=== PATIENT | female | born 1935 | race Caucasian/White ===

== ENCOUNTER 2016-12-30 10:44 | Emergency (ER) | payer MEDICARE, MEDICAID ==
[2016-12-30 11:34] LABS: ALT (SGPT) 14 U/L (8-55); AST (SGOT) 20 U/L (5-34); Albumin 3.8 g/dL (3.4-4.8); Alkaline Phosphatase 135 U/L (40-150); Anion Gap 28 mmol/L (10-20); BUN (Urea Nitrogen) 60 mg/dL (9.8-20.1); Bilirubin, Total 0.5 mg/dL (0.2-1.2); Calc. Creatinine Clearance 0 mL/min (70-130); Calcium 9.9 mg/dL (7.8-10.44); Carbon Dioxide 15 mmol/L (23-31); Chloride 95 mmol/L (98-107); Estimated GFR-MDRD 13; Globulin 4.2 g/dL (2.4-3.5); Glucose 120 mg/dL (83-110); Magnesium 1.6 mg/dL (1.6-2.6); Potassium 4.2 mmol/L (3.5-5.1); Sodium 134 mmol/L (136-145)
[2016-12-30 11:36] LABS: CKMB 1.2 ng/mL (0-6.6); Troponin I 0.017 ng/mL (< 0.028)
[2016-12-30 11:42] LABS: Acanthocytes SLIGHT = 1-5 cells (100X) (None Seen); Band 61 % (5-11); Hemoglobin 12.6 g/dL (12.0-16.0); Lymphocytes 4 % (21-51); MDiff Complete? YES; Mean Corpuscular HGB CONC 32.2 g/dL (32.0-36.0); Mean Corpuscular Hemoglobin 28.6 pg (27.0-31.0); Mean Corpuscular Volume 88.9 fl (81.0-99.0); Monocytes 5 % (0-10); Neutrophil 29 % (42-75); Platelet Count 508 thou/uL (130-400); RBC Distribution Width 12.6 % (11.5-14.5); Reactive Lymphocytes 1 % (0-10); Toxic Granulation MODERATE; Vacuoles SLIGHT; White Blood Cell (WBC) Count 24.8 thou/uL (4.8-10.8)
[2016-12-30 11:55] LABS: Bilirubin Small (Negative); Blood, Urine Negative (Negative); Clarity Slightly Cloudy (Clear); Glucose, Urine (Dipstick) Negative (Negative); Leukocyte Negative (Negative); Nitrite Negative (Negative); Protein, Urine (Dipstick) 30 mg/dL (Neg-Trace); Urobilinogen 0.2 mg/dL (0.2-1.0)
[2016-12-30 11:59] LABS: Bacteria/HPF 1+ HPF (None Seen); Oval Fat Bodies/HPF None Seen HPF (None Seen); RBC/HPF None Seen HPF (0-3); Renal Epithelial None Seen HPF (0-3); Sperm/HPF None Seen HPF (None Seen); Squamous Epithelial 0-3 HPF (0-3); Transitional Epithelial NONE SEEN HPF (0-3); Trichomonas/HPF None Seen HPF (None Seen); WBC/HPF 0-3 HPF (0-3); Yeast-All Forms None Seen HPF (None Seen)
[2016-12-30 12:00] LABS: Crystals/HPF None Seen HPF (Negative); Hyaline Casts/LPF NONE SEEN LPF (0-3 Hyaline); Other Casts/LPF None Seen LPF (0-3 Hyaline)
--- NOTE | 2016-12-30 12:47 | RAD ---
PORTABLE CHEST: DATE: 12/30/16. FINDINGS: An AP portable film at 1101 is compared with a 06/27/16 study from [facility]. There has been no adverse interval change. The heart size is the same. There are no congestive fin dings, pleural effusions, or focal pulmonary infiltrates. Calcification is seen in the aortic arch as usual. IMPRESSION: No acute thoracic findings. POS: HOME
[2016-12-30 13:14] LABS: Troponin I 0.011 ng/mL (< 0.028)
[2016-12-30] MEDS ORDERED: Piperacillin/Tazobactam 3.375 GM VIAL ONE (13:25)
[2016-12-30 15:05] LABS: Color Of CSF Supernatant COLORLESS (Colorless); Tube # 2; Unspun CSF Color COLORLESS (Colorless)
[2016-12-30 15:09] LABS: CSF Source CSF; Clarity Clear (Clear); RBC Count - Manual 0 /cumm (None Seen); Tube # 3; WBC/NonHematics Count - Manual 1 /cumm (0-5)
[2016-12-30 15:22] LABS: CSF, Glucose 67 mg/dl (40-70); CSF, Protein 28 mg/dL (15-40)
== END 2016-12-30 14:05 | disposition short-term general hospital (02) ==
LOC: BURERS 10:44
DX: N17.9 Acute kidney failure, unspecified (principal); R55 Syncope and collapse; D64.9 Anemia, unspecified; I25.10 Atherosclerotic heart disease of native coronary artery without angina pectoris; K21.9 Gastro-esophageal reflux disease without esophagitis; E78.5 Hyperlipidemia, unspecified; I11.0 Hypertensive heart disease with heart failure; I50.9 Heart failure, unspecified; M19.90 Unspecified osteoarthritis, unspecified site; J44.9 Chronic obstructive pulmonary disease, unspecified; F03.90 Unspecified dementia, unspecified severity, without behavioral disturbance, psychotic disturbance, mood disturbance, and anxiety; F41.9 Anxiety disorder, unspecified; F32.9 Major depressive disorder, single episode, unspecified; F17.210 Nicotine dependence, cigarettes, uncomplicated; Z79.899 Other long term (current) drug therapy
CPT/HCPCS: 51701; 62270; 71010; 80053; 81003; 81015; 82553; 82945; 83605; 83735; 84157; 84484; 85025; 87040; 87086; 89051; 93005; 96365; A4353; J2543